=== PATIENT | female | born 1970 | race Two or more races ===

== ENCOUNTER 2017-09-30 05:47 | Day surgery (SDC) | payer OTHER ==
[2017-09-29 10:56] VITALS: Ht 162.6 cm; Wt 61.5 kg
[~2017-09-30] VITALS: Ht 162.6 cm; Wt 61.5 kg
[2017-09-30] VITALS (13 sets, daily range): BP systolic 84–101; BP diastolic 54–64; PULSE 52–71; RESP 16–20
--- NOTE | 2017-09-30 06:05 | PREOPHP ---
DATE OF ADMISSION: 09/30/2017 HISTORY OF PRESENT ILLNESS: This is a 46-year-old lady, 3, para 0, with 3 abortions. Her last normal menstrual period was just few days prior to admission. She was admitted for D and C, hysteroscopy and suction curettage. This patient bleeds very heavily on the first day, associated with lower abdominal cramps. Endometrium was thickened, at 5 mm. Endometrial biopsy was done and the endometrial biopsy showed complex hyperplasia, so that she was admitted for D and C, hysteroscopy and suction curettage. The procedures were explained to the patient and she understood everything totally. The risks, benefits, and alternatives were discussed with her as well. PAST MEDICAL HISTORY: No history of diabetes, TB, asthma. ALLERGIES: NO ALLERGIES. SOCIAL HISTORY: The patient does not smoke. She does not drink. She does not take any drugs. AWNING MAKER HISTORY: She had menarche at the age of 14, every 28 days' interval, 3-4 days' duration and moderate in amount. She is 3, para 0, with 3 abortions. FAMILY HISTORY: Her father and mother have high blood pressure. Grandmother had a stroke. REVIEW OF SYSTEMS: CARDIOVASCULAR: No chest pains. LUNGS: No cough. GASTROINTESTINAL: No diarrhea, no vomiting. GENITOURINARY: No dysuria. PHYSICAL EXAMINATION: GENERAL: Reveals a conscious, coherent lady, and in no acute distress. VITAL SIGNS: Blood pressure 120/80, pulse rate 80 per minute, respirations 16 per minute. BREASTS: Within normal limits. CARDIAC: Within normal limits. LUNGS: Within normal limits. ABDOMEN: Soft. No organomegaly. PELVIC: Revealed the cervix to be firm. Uterus of normal size and adnexa were negative for masses. RECTAL: Rectal exam confirmed the pelvic findings. EXTREMITIES: No pedal edema. ADMITTING DIAGNOSIS: Complex endometrial hyperplasia. The patient was planned to have D and C, hysteroscopy, suction curettage. As mentioned, the procedures were explained to the patient and she understood everything totally. The risks, benefits, and alternatives was discussed with her as well. Dictated By: Crystal Augustin MD /[email or web address] /Document#: [id number] ; [facility]
[2017-09-30] MEDS ORDERED: MIDAZOLAM 1 MG/ML 2 ML INJ ONE (08:37)
[2017-09-30] MEDS ORDERED: FENTAnyl 50 MCG/ML VIAL ONE (08:38)
[2017-09-30] MEDS ORDERED: PROPOFOL 100 ML ONE (08:45)
[2017-09-30] MEDS ORDERED: KETOROLAC 30 MG INJ ONE (08:45)
[2017-09-30] MEDS ORDERED: DEXAMETHASONE 4 MG/ML 1 ML INJ ONE (08:45)
[2017-09-30] MEDS ORDERED: ONDANSETRON 4 MG INJ ONE (08:47)
--- NOTE | 2017-09-30 09:19 | SIPON ---
Date/Time of Note Date/Time of Note DATE: 09/30/17 TIME: 09:18 Operative Report Preoperative Diagnosis Complex Hyperplasia Postoperative Diagnosis Complex Hyperplasia Operation/Procedure Performed D&C Hysteroscopy Suction Curettage Surgeon see signature line assistant front office manager medical records tech Anesthesia: general Estimated blood loss: minimal Transfusion Required none Specimen ECC [facility] SUCTION CURETTAGE Grafts/Implants none Complications none KERRY FULLER MD Sep 30, 2017 09:19
[2017-09-30] MEDS ORDERED: EPHEDrine SULFATE 50 MG/5 ML SYG IV PRN (09:30)
[2017-09-30] MEDS ORDERED: MEPERIDINE 25 MG INJ IV PRN (09:30)
[2017-09-30] MEDS ORDERED: FENTAnyl 50 MCG/ML VIAL IV PRN ×3 (09:30)
[2017-09-30] MEDS ORDERED: LABETALOL HCL 20MG INJ IV PRN (09:30)
[2017-09-30] MEDS ORDERED: DIPHENHYDRAMINE 50 MG INJ IV PRN (09:30)
[2017-09-30] MEDS ORDERED: OXYCODONE/ACETAMINOPHEN (5/325) TAB PO PRN ×2 (09:30)
[2017-09-30] MEDS ORDERED: KETOROLAC 30 MG INJ IV PRN (09:30)
[2017-09-30] MEDS ORDERED: ACETAMINOPHEN 325 MG TAB PO PRN (09:30)
[2017-09-30] MEDS ORDERED: ONDANSETRON 4 MG INJ IV PRN (09:30)
[2017-09-30] MEDS ORDERED: hydrALAzine 20 MG INJ IV PRN (09:30)
--- NOTE | 2017-09-30 18:10 | OPR ---
DATE OF OPERATION: 09/30/2017 PREOPERATIVE DIAGNOSIS: Endometrial hyperplasia and endometrial biopsy. POSTOPERATIVE DIAGNOSIS: Pending pathology report. SURGEON: Crystal Augustin MD [employer]: biomedical equipment technician. ANESTHESIA: General. OPERATION PERFORMED: Dilation and curettage, hysteroscopy and suction curettage. OPERATIVE PROCEDURE: Under general anesthesia, the patient was prepped and draped in the usual fashion for vaginal surgery. Pelvic exam under anesthesia revealed the cervix to be firm, uterus of normal size and adnexa were negative for masses. Then the heavyweight vaginal retractor was put in place and the anterior lip of the cervix was grasped with an Allis clamp and the cervical dilatation up to Hegar 7 was proceeded. The uterus sounded to about 3-1/2 inches. Then the hysteroscope was inserted inside the uterine cavity and connected with the hysteroscope with the light source. The uterus was distended with normal saline. There were no polyps or fibroids seen, and the cervical curettage was performed. A small amount of tissue was obtained. Endometrial curettage was performed and good amount of tissue was obtained. Suction tip size 7 was inserted inside the uterine cavity and suction curettage was done. A good amount of tissue was obtained. The uterus was intact during and after the procedure. Patient tolerated the procedure well. ESTIMATED BLOOD LOSS: Minimal. Vital signs was stable during and after the procedure. Dictated By: Crystal Augustin MD /[email or web address] /Document#: [id number]
== END 2017-09-30 11:16 | disposition home or self-care (01) ==
LOC: SDS 05:47
PROVIDERS: ATTEND Obstetrics & Gynecology
DX: N85.00 Endometrial hyperplasia, unspecified (principal)
CPT/HCPCS: 58558; 84703; 86850; 86900; 86901; 88305; J1100; J1885; J2175; J2250; J2405; J3010; Z7512; Z7610